=== PATIENT | female | born 1980 | race Asian ===

== ENCOUNTER 2019-09-01 05:44 | Emergency (ER) | payer OTHER ==
[~2019-09-01] VITALS: Ht 165.1 cm; Wt 53.5 kg
--- NOTE | 2019-09-01 05:52 | NUR ---
PT BIBSELF C/O L FLANK PAIN AND LOWER ABDOMINAL PAIN X1.5HR NEONATAL CRITICAL CARE NURSE "NEED TO PEE, BUT CAN'T" -DYSURIA, +NAUSEA, -VOMITTING. 400MG IBUPROFEN NEONATAL CRITICAL CARE NURSE. PT AOX4. NAD NOTED. RESP EVEN AND UNLABORED. PT ON MONITOR IN BED 2. WILL CONTINUE TO MONITOR.
[2019-09-01] MEDS ORDERED: ACETAMINOPHEN ES 500 MG TABLET PO ONE (06:00)
--- NOTE | 2019-09-01 06:11 | NUR ---
BLOOD DRAWN AND GIVEN TO PHLEB
--- NOTE | 2019-09-01 06:11 | NUR ---
URINE COLLECTED AND GIVEN TO PHLEB
[2019-09-01] MEDS ORDERED: ACETAMINOPHEN ES 500 MG TABLET ONE (06:13)
[2019-09-01 06:16] LABS: BASOPHILS % (AUTO) 0.7 % (0.0-2.0); EOSINOPHILS % (AUTO) 1.8 % (0.0-6.0); HEMATOCRIT 45 % (33-45); HEMOGLOBIN 14.7 g/dL (11.5-14.8); LYMPHOCYTES # (AUTO) 2.4 /CMM (0.8-4.8); LYMPHOCYTES % (AUTO) 34.1 % (20.0-44.0); MEAN CORPUSCULAR HGB CONC 33 g/dl (31.0-36.0); MEAN CORPUSCULAR VOLUME 91 fL (82-100); MONOCYTES # (AUTO) 0.6 /CMM (0.1-1.30); MONOCYTES % (AUTO) 8.1 % (2.0-12.0); NEUTROPHILS # (AUTO) 3.8 /CMM (1.8-8.9); NEUTROPHILS % (AUTO) 55.3 % (43.0-81.0); PLATELET COUNT (AUTO) 359 /CMM (150-450); RED BLOOD CELL COUNT(AUTO) 4.92 MIL/uL (4.0-5.2); WHITE BLOOD COUNT (AUTO) 6.9 K/uL (4.3-11.0)
[2019-09-01 06:22] LABS: APPEARANCE,URINE CLOUDY (CLEAR); BILIRUBIN,URINE SMALL (NEGATIVE); BLOOD, URINE LARGE Ery/uL (NEGATIVE); COLOR,URINE RED (YELLOW); KETONES,URINE NEGATIVE (NEGATIVE); LEUKOCYTE ESTERASE ,URINE NEGATIVE (NEGATIVE); NITRITE, URINE POSITIVE (NEGATIVE); PROTEIN,URINE >=300 mg/dl (NEGATIVE); UGLUCOSE NEGATIVE (NEGATIVE); UROBILINOGEN,URINE 0.2 EU/dL (0.2)
[2019-09-01 06:28] LABS: BACTERIA,URINE 2+ /HPF (None Seen); MUCUS,URINE Few /LPF (None Seen); RBC,URINE TOO NUMEROUS TO COUN /HPF (0-2); URINE AMORPHOUS URATE Few /HPF (None Seen)
[2019-09-01 06:35] LABS: CALCIUM, SERUM 8.9 mg/dL (8.5-10.1); CREATININE 1.1 mg/dL (0.6-1.3); POTASSIUM 3.4 mmol/L (3.5-5.1)
--- NOTE | 2019-09-01 06:42 | NUR ---
PT TAKEN TO RADIOLOGY VIA [facility]
--- NOTE | 2019-09-01 06:51 | NUR ---
PT RETURNED FROM RADIOLOGY VIA [facility]
--- NOTE | 2019-09-01 07:16 | NUR ---
REPORT GIVEN TO RADHA SCHULER FOR SHEBA
[2019-09-01] MEDS ORDERED: CEFTRIAXONE 1GM BAG (ER ONLY) 50 ML IV ONE (07:43)
[2019-09-01] MEDS ORDERED: KETOROLAC TROMETHAMINE INJ 30 MG/ML VIAL ONE (07:47)
[2019-09-01] MEDS ORDERED: ONDANSETRON HCL/PF 4 MG/2 ML VIAL ONE (07:47)
[2019-09-01] MEDS ORDERED: ONDANSETRON HCL/PF 4 MG/2 ML VIAL IV ONE (08:00)
[2019-09-01] MEDS ORDERED: KETOROLAC TROMETHAMINE INJ 30 MG/ML VIAL IV ONE (08:00)
[2019-09-01] MEDS ORDERED: CEFTRIAXONE 1GM BAG (ER ONLY) 1 GM/50 ML PIGGYBACK IV ONE (08:00)
--- NOTE | 2019-09-01 08:03 | NUR ---
Patient is resting comfortably in bed with eyes closed.
--- NOTE | 2019-09-01 08:23 | NUR ---
Patient ambulatory, no distress noted. IV removed. Catheter intact and site benign. Pressure and 4x4 applied to site. No bleeding noted.Patient discharged to home in stable condition. Written and verbal after care instructions given. Patient verbalizes understanding of instruction.
[2019-09-01 08:25] VITALS: BP 118/81
== END 2019-09-01 08:25 | disposition home or self-care (01) ==
LOC: ER 05:48
DX: N20.0 Calculus of kidney (principal); N39.0 Urinary tract infection, site not specified; F17.200 Nicotine dependence, unspecified, uncomplicated; Z98.890 Other specified postprocedural states
CPT/HCPCS: 36415; 74176; 80048; 81001; 84703; 85025; 87086; 96365; 96375; 99284; J0696; J1885; J2405; 81000-TC